=== PATIENT | female | born 1940 | race Caucasian/White ===

== ENCOUNTER 2019-06-29 14:09 | Emergency (ER) | payer MEDICARE ==
[~2019-06-29] VITALS: Ht 157.5 cm; Wt 88.0 kg
--- NOTE | 2019-06-29 14:47 | NUR ---
PT HERE WITH C/O POSSIBLE UTI AND SURGUCAL SITE INFECTION. PT SENT FROM [facility]RGENT [facility]ARE. PT STATES SHE WENT IN AND WAS DIAGNOSED WITH A UTI (HX UTI), RECENT VAGINAL HYSTERECTOMY ON 05/07. PT STATES GREEN/PINK FOUL SMELLING THICK DISCHARGE FROM INCISION. PT AAO X 4, NAD, ROOM AIR, DRESSED IN GOWN AND ATTACHED TO MONITOR.
[2019-06-29] MEDS ORDERED: SODIUM CHLORIDE FLUSH 10ML SYR IVF ONE (15:30)
[2019-06-29] MEDS ORDERED: PLEASE ENTER ALLERGIES MC SCH (15:30)
--- NOTE | 2019-06-29 15:32 | NUR ---
PIV ESTABLISHED BY THIS RN, PARTIAL LABS DRAWN.
--- NOTE | 2019-06-29 15:57 | NUR ---
CATH UA PERFORMED BY THIS RN WITH STERILE TECHNIQUE. PT TOLERATED WELL, SPECIMEN WALKED TO LAB.
--- NOTE | 2019-06-29 15:57 | NUR ---
LAB AT BEDSIDE FOR LAB DRAW.
[2019-06-29 16:09] LABS: BASOPHILS # (AUTO) 0.06 x10^3/uL (0-0.1); BASOPHILS % (AUTO) 1 % (0-1); EOSINOPHILS % (AUTO) 2 % (1-7); LYMPHOCYTES # (AUTO) 1.63 x10^3/uL (1-3.4); LYMPHOCYTES % (AUTO) 14 % (22-44); MD NO; MEAN CORPUSCULAR HEMOGLOBIN 29.3 pg (27.0-34.8); MEAN CORPUSCULAR HGB CONC 32.6 g/dL (32.4-35.8); MEAN CORPUSCULAR VOLUME 89.8 fL (80-100); MONOCYTES # (AUTO) 1.09 x10^3/uL (0.2-0.8); MONOCYTES % (AUTO) 10 % (2-9); NEUTROPHILS # (AUTO) 8.35 x10^3/uL (1.8-6.8); NEUTROPHILS % (AUTO) 74 % (42-75); PLATELET COUNT 284 x10^3/uL (130-400); RED BLOOD COUNT 3.97 x10^6/uL (3.82-5.3); RED CELL DISTRIBUTION WIDTH 14.9 % (9.6-15.2)
[2019-06-29 16:11] LABS: MICROSCOPIC AUTO
[2019-06-29 16:14] LABS: CULTURE INDICATED? YES
[2019-06-29 16:16] LABS: ALANINE AMINOTRANSFERASE 21 U/L (12-78); ALBUMIN 2.9 g/dL (3.4-5.0); ANION GAP 5 mmol/L (5-15); CHLORIDE 106 mmol/L (98-107); CREATININE 0.78 mg/dL (0.55-1.02)
[2019-06-29 16:18] LABS: ALKALINE PHOSPHATASE 125 U/L (45-117); BILIRUBIN,TOTAL 0.7 mg/dL (0.2-1.0); TOTAL PROTEIN 7.4 g/dL (6.4-8.2)
--- NOTE | 2019-06-29 16:32 | NUR ---
PT TO CT.
[2019-06-29] MEDS ORDERED: OMNIPAQUE 350 MG/ML, 100ML BOTTLE ONE (17:08)
[2019-06-29 17:14] VITALS: BP 110/67
--- NOTE | 2019-06-29 17:14 | NUR ---
PT BACK FROM SCAN, AMBULATORY TO RESTROOM WITH STEADY GAIT AND STAND BY ASSISTANCE.
--- NOTE | 2019-06-29 17:31 | NUR ---
DR. BRASHER AT BEDSIDE FOR PELVIC EXAM, THIS RN HAND CIGAR MAKING SUPERVISOR. PT TOLERATED WELL.
--- NOTE | 2019-06-29 17:48 | NUR ---
dr nunez spoke with dr burnett
--- NOTE | 2019-06-29 18:02 | NUR ---
DR. BRASHER AT BEDSIDE TO DISCUSS POC.
--- NOTE | 2019-06-29 18:02 | NUR ---
ALL RESULTS BACK AT THIS TIME, CHART UP FOR RECHECK.
[2019-06-29] MEDS ORDERED: CEFDINIR 300 MG CAPSULE ONE (18:14)
[2019-06-29] MEDS ORDERED: metroNIDAZOLE 500 MG TABLET ONE (18:14)
--- NOTE | 2019-06-29 18:23 | NUR ---
PT MEDICATED PER ORDERS.
[2019-06-29] MEDS ORDERED: CEFDINIR 300 MG CAPSULE PO ONE (18:30)
[2019-06-29] MEDS ORDERED: metroNIDAZOLE 500 MG TABLET PO ONE (18:30)
--- NOTE | 2019-06-29 18:35 | NUR ---
Patient/Caregiver given discharge instructions and they have confirmed that they understand the instructions. Patient ambulatory with steady gait. PIV REMOVED, TIP INTACT.
== END 2019-06-29 18:52 | disposition home or self-care (01) ==
LOC: ED 14:52
DX: N89.8 Other specified noninflammatory disorders of vagina (principal); R10.31 Right lower quadrant pain; K86.2 Cyst of pancreas; Z88.0 Allergy status to penicillin; Z87.891 Personal history of nicotine dependence; Z88.1 Allergy status to other antibiotic agents
CPT/HCPCS: 36415; 74177; 80053; 81001; 83605; 83690; 85025; 87086; 99284; Q9967

== ENCOUNTER 2020-07-30 20:10 | Emergency (ER) | payer MEDICARE ==
[~2020-07-30] VITALS: Ht 157.5 cm; Wt 91.0 kg
--- NOTE | 2020-07-30 20:53 | NUR ---
PIV PLACED, LABS DRAWN AND COLLECTED BY SCALE TECHNICIAN. XRAY COMPLETE. PT AMBULATED TO RESTROOM WITH STEADY GAIT TO PROVIDE URINE SAMPLE.
[2020-07-30] MEDS ORDERED: SODIUM CHLORIDE 0.9% 1,000ML IVBOLUS ONE (21:00)
[2020-07-30 21:08] LABS: BASOPHILS % (AUTO) 1 % (0-1); EOSINOPHILS % (AUTO) 2 % (1-7); LYMPHOCYTES % (AUTO) 20 % (22-44); MEAN CORPUSCULAR HEMOGLOBIN 28.2 pg (27.0-34.8); MEAN CORPUSCULAR HGB CONC 32.9 g/dL (32.4-35.8); MEAN PLATELET VOLUME 9.1 fL (7.4-10.4); MONOCYTES % (AUTO) 25 % (2-9); NEUTROPHILS % (AUTO) 53 % (42-75); PLATELET COUNT 178 x10^3/uL (130-400); RED BLOOD COUNT 4.42 x10^6/uL (3.82-5.3); RED CELL DISTRIBUTION WIDTH 15.8 % (9.6-15.2)
[2020-07-30 21:09] LABS: ALBUMIN 3.3 g/dL (3.4-5.0); ANION GAP 7 mmol/L (5-15); CHLORIDE 110 mmol/L (98-107)
[2020-07-30 21:15] LABS: ALANINE AMINOTRANSFERASE 28 U/L (12-78); ALKALINE PHOSPHATASE 112 U/L (45-117); BILIRUBIN,TOTAL 0.5 mg/dL (0.2-1.0); CREATININE 0.92 mg/dL (0.55-1.02); MD NO; TROPONIN I 0.041 ng/mL (0.000-0.045)
--- NOTE | 2020-07-30 21:22 | NUR ---
UA COLLECTED AND SENT TO LAB. PT CONNECTED TO ALL MONITORING. CALL LIGHT IN REACH. DAUGHTER AT BEDSIDE.
--- NOTE | 2020-07-30 21:27 | NUR ---
PT GOING TO US.
[2020-07-30 21:29] LABS: MICROSCOPIC INDICATED
[2020-07-30] MEDS ORDERED: CEFTRIAXONE PMX 1GM/50ML 50 ML ONE (22:00)
[2020-07-30] MEDS ORDERED: CEFTRIAXONE PMX 1GM/50ML 50 ML IV ONE (22:00)
[2020-07-30 22:05] VITALS: BP 159/67
--- NOTE | 2020-07-30 22:05 | NUR ---
PT BACK FROM US. IV ABX ADMIN PER OCT. PT RESTING COMFORTABLY ON GURNEY. KRISTIN.
--- NOTE | 2020-07-30 22:12 | NUR ---
ALL RESULTS ARE BACK AT THIS TIME. CHART UP FOR RECHECK.
== END 2020-07-30 22:30 | disposition home or self-care (01) ==
LOC: ED 20:40
DX: U07.1 COVID-19 (principal); N30.00 Acute cystitis without hematuria; M79.89 Other specified soft tissue disorders; R53.1 Weakness; R07.89 Other chest pain; R11.0 Nausea; R05 Cough; E11.9 Type 2 diabetes mellitus without complications; Z86.718 Personal history of other venous thrombosis and embolism; Z87.891 Personal history of nicotine dependence
CPT/HCPCS: 36415; 71045; 80053; 81001; 83880; 84484; 85025; 87077; 87086; 87186; 87635; 93005; 93971; 96361; 96374; 99285; J0696; J7030; 96365; 99284